=== PATIENT | female | born 1975 | race Caucasian/White ===

== ENCOUNTER 2017-10-23 18:01 | Inpatient (IN) | END 2017-10-28 13:00 | disposition home or self-care (01) | DRG 419 ==

== ENCOUNTER 2018-08-15 09:26 | Emergency (ER) | payer MEDICAID ==
[~2018-08-15] VITALS: Wt 89.3 kg
[~2018-08-15 09:26] MED LIST: GABA300C16 PO; LISI-471 PO; METF500T24 PO; NOVMIX SC
[2018-08-15 09:29] VITALS: BP 190/98; PULSE 93; RESP 18
[2018-08-15] MEDS ORDERED: IBUP-1542 PO (10:21)
[2018-08-15] MEDS ORDERED: CEPH-443 PO (10:21)
--- NOTE | 2018-08-15 10:24 | ERD ---
ER Documentation Chief Complaint Chief Complaint LEFT FACIAL SWELLING WITH TOOTH ACHE HPI This 43-year-old female presents with left upper dental pain and swelling for the last day. She denies fevers, chest pain, shortness of breath, vomiting or abdominal pain. ROS All systems reviewed and are negative except as per history of present illness. Medications Home Meds Active Scripts Ibuprofen* (Motrin*) 600 Mg Tab, 600 MG PO Q6, #20 TAB Prov:CIERA FLETCHER MD 08/15/18 Cephalexin* (Keflex*) 500 Mg Capsule, 500 MG PO QID for 10 Days, CAP Prov:CIERA FLETCHER MD 08/15/18 Gabapentin* (Gabapentin*) 300 Mg Capsule, 300 MG PO TID for 30 Days, #90 CAP 1 Refill Prov:KLARISSA CASON 10/28/17 Lisinopril* (Lisinopril*) 20 Mg Tablet, 20 MG PO DAILY for 30 Days, #30 TAB 2 Refills Prov:KLARISSA CASON 10/28/17 Reported Medications Insulin Aspart (Novolog Mix (70/30)) 100 Units/Ml Soln, 15 UNIT SC WITH BREAKFAST DINNE, EA 10/23/17 Metformin Hcl* (Metformin Hcl*) 500 Mg Tablet, 500 MG PO WITH BREAKFAST DINNE, #60 TAB 10/23/17 Allergies Allergies: Coded Allergies: No Known Allergy (Unverified , 10/23/17) PMhx/Soc History of Surgery: Yes (appendectomy, right foot surgery ) Anesthesia Reaction: No Hx Neurological Disorder: Yes (neuropathy of feet) Hx Respiratory Disorders: No Hx Cardiac Disorders: No Hx Psychiatric Problems: No Hx Miscellaneous Medical Probl: No Hx Alcohol Use: No Hx Substance Use: No Hx Tobacco Use: No FmHx Family History: No diabetes, No coronary disease, No other Physical Exam Vitals Vital Signs Date Temp Pulse Resp B/P (MAP) Pulse Ox O2 O2 Flow FiO2 Time Delivery Rate 08/15/18 98.4 93 18 190/98 99 09:29 (128) Physical Exam Const: No acute distress Head: Atraumatic Eyes: Normal Conjunctiva ENT: Normal External Ears, Nose and Mouth.Left upper anterior molar poor dentition with tenderness at the base with mild swelling. No facial erythema or induration. Airway patent. Neck: Full range of motion. No meningismus. Resp: Clear to auscultation bilaterally Cardio: Regular rate and rhythm, no murmurs Abd: Soft, non tender, non distended. Normal bowel sounds Skin: No petechiae or rashes Back: No midline or flank tenderness Ext: No cyanosis, or edema Neur: Awake and alert Psych: Normal Mood and Affect Results 24 hrs Current Medications Medications Dose Sig/Alyssa Start Time Status Last (Trade) Ordered Route PRN Stop Time Admin Dose Reason Admin Cephalexin 500 mg ONCE ONCE 08/15/18 (Keflex) PO 10:30 08/15/18 10:31 Ibuprofen 600 mg ONCE ONCE 08/15/18 (Motrin) PO 10:30 08/15/18 10:31 1 tab ONCE ONCE 08/15/18 Acetaminophen PO 10:30 08/15/18 / 10:31 Hydrocodone Bitart ([place] (5/325)) Procedures/MDM Patient presents with left upper dental pain and swelling consistent with early dental abscess. She has no facial cellulitis, sepsis, airway obstruction. She was given Keflex, [place], ibuprofen will treated with Keflex, ibuprofen, recommendations for dental follow-up and return precautions. The patient was stable with no new complaints during the ER course. Clinically, there is no current evidence to suggest meningitis, sepsis, acute abdomen, pneumonia, stroke, acute coronary syndrome, pulmonary embolism, aortic dissection or any other emergent condition appearing to require further evaluation or hospitalization. Patient counseled regarding my diagnostic impression and care plan. Prior to discharge all questions answered. Pt agrees with treatment plan and understands strict return precautions. Pt is instructed to follow up with primary care provider within 24-48 hours. Precautionary instructions provided including instructions to return to the ER if not improving or for any worsening or changing symptoms or concerns. Departure Diagnosis: Primary Impression: Toothache Condition: Stable Patient Instructions: Dental Abscess [facility] Usted se yen hecho un examen mdico de control que le indica que no est en federico condicin que requiera tratamiento urgente en el Departamento de Emergencia. Un estudio ms profundo y el tratamiento de zepeda condicin pueden esperar sin ningn riesgo hasta que usted sea atendida/o en el consultorio de zepeda mdico o federico clnica. Es responsabilidad suya arreglar federico caio para el seguimiento del cornel. MANEJO DE CONDICIONES NO URGENTES EN EL FUTURO 1) Si usted tiene un mdico de atencin primaria: Usted debera llamar a zepeda mdico de atencin primaria antes de venir al departamento de emergencia. Despus de las horas de consultorio, zepeda doctor o zepeda asociado/a est disponible por telfono. El mdico o enfermero de esperanza en el servicio telefnico puede asesorarle por anya medio para atender el problema, o cornel contrario se puede programar federico caio. 2) Si usted no tiene un mdico de atencin primaria: Llame al mdico o clnica de referencia que aparece abajo jasen las horas de consultorio para hacer federico caio para que le vean. CLINICAS: [place] [id number] [phone] [facility] [phone] [facility] [facility] [place] [id number] [facility]. [place] [id number] [phone] [facility]. [place] [id number] [phone] [facility]. [phone] [facility] walk in clinic) Additional Instructions: Va al zepeda doctor/ specialista para mas evaluacon en el proximo semana. posiblemente necesita autorizado de zepeda doctor primario para specialista. Regresa para fiebre, o mas o nueva simptomas. CIERA FLETCHER MD Aug 15, 2018 10:24
[2018-08-15] MEDS ORDERED: IBUPROFEN 600 MG TAB PO ONE (10:30)
[2018-08-15] MEDS ORDERED: CEPHALEXIN 500 MG CAP PO ONE (10:30)
[2018-08-15] MEDS ORDERED: HYDROCODONE/APAP (5/325) TAB PO ONE (10:30)
== END 2018-08-15 10:38 | disposition home or self-care (01) ==
LOC: FTE 09:26
DX: K08.89 Other specified disorders of teeth and supporting structures (principal); E11.9 Type 2 diabetes mellitus without complications; Z79.4 Long term (current) use of insulin
CPT/HCPCS: Z7502; Z7610; 99283